=== PATIENT | female | born 1990 | race Hispanic/Latino ===

== ENCOUNTER 2016-08-02 17:17 | Emergency (ER) | payer OTHER, BC ==
[~2016-08-02] VITALS: Ht 165.1 cm; Wt 75.0 kg
[2016-08-02] MEDS ORDERED: MOTRIN800 MG PO (17:48)
[2016-08-02 18:34] VITALS: BP 126/50
== END 2016-08-02 18:43 | disposition home or self-care (01) | DRG 605 ==
LOC: ED 17:17
DX: S40.811A Abrasion of right upper arm, initial encounter (principal); W31.9XXA Contact with unspecified machinery, initial encounter; Y92.89 Other specified places as the place of occurrence of the external cause

== ENCOUNTER 2016-08-09 09:18 | Emergency (ER) | payer OTHER, BC ==
[~2016-08-09] VITALS: Ht 165.1 cm; Wt 65.0 kg
[~2016-08-09 09:18] MED LIST: MOTRIN800 MG PO
[2016-08-09 09:55] VITALS: BP 114/68
== END 2016-08-09 10:04 | disposition home or self-care (01) | DRG 950 ==
LOC: ED 09:18
DX: S40.021D Contusion of right upper arm, subsequent encounter (principal); X58.XXXD Exposure to other specified factors, subsequent encounter

== ENCOUNTER 2019-02-06 07:36 | Emergency (ER) | payer BC ==
[~2019-02-06] VITALS: Ht 165.1 cm; Wt 97.1 kg
[2019-02-06] MEDS ORDERED: OB COMPLET2 PO (07:58)
[2019-02-06] MEDS ORDERED: AMOXICILLIN500 M2 PO (08:44)
[2019-02-06 08:54] VITALS: BP 110/64
== END 2019-02-06 09:01 | disposition home or self-care (01) | DRG 833 ==
LOC: ED 07:36
DX: O99.513 Diseases of the respiratory system complicating pregnancy, third trimester (principal); J06.9 Acute upper respiratory infection, unspecified; Z3A.31 31 weeks gestation of pregnancy

== ENCOUNTER 2021-02-23 08:03 | Day surgery (SDC) | payer OTHER ==
[~2021-02-23 08:03] MED LIST changes: +AMOXICILLIN500 M2 PO; +OB COMPLET2 PO
[2021-02-24] MEDS ORDERED: PERCOCET 5/325M1 TAB PO (11:19)
== END 2021-02-23 08:15 | disposition home or self-care (01) ==
LOC: ORM 08:03
PROVIDERS: ATTEND Surgery
DX: K80.20 Calculus of gallbladder without cholecystitis without obstruction (principal)

== ENCOUNTER 2021-02-24 08:46 | Day surgery (SDC) | payer OTHER ==
[~2021-02-24] VITALS: Ht 160 cm; Wt 80.7 kg
[2021-02-24] MEDS ORDERED: PERCOCET 5/325M1 TAB PO (11:19)
[2021-02-24 12:21] VITALS: BP 116/55
== END 2021-02-24 13:46 | disposition home or self-care (01) ==
LOC: ORM 08:46
PROVIDERS: ATTEND Surgery
DX: K80.12 Calculus of gallbladder with acute and chronic cholecystitis without obstruction (principal)
CPT/HCPCS: J0131